=== PATIENT | male | born 1965 | race African-American/Black ===

== ENCOUNTER 2016-11-08 01:16 | Emergency (ER) | payer OTHER ==
[~2016-11-08] VITALS: Ht 182.9 cm; Wt 70.1 kg
[~2016-11-08 01:16] MED LIST: IBUP-1542 PO; IBUP800T25 PO; NAPR-260 PO; SUMA25TA3 PO
[2016-11-08 01:22] VITALS: Ht 182.9 cm; Wt 70.1 kg
[2016-11-08] MEDS ORDERED: CEFTRIAXONE 250 MG INJ IM ONE (05:30)
[2016-11-08] MEDS ORDERED: LIDOCAINE 1% (MDV) 20 ML INJ SC ONE (05:30)
[2016-11-08] MEDS ORDERED: AZITHROMYCIN 250 MG TAB PO ONE (05:30)
--- NOTE | 2016-11-08 05:36 | ERD ---
ER Documentation Chief Complaint Date/Time DATE: 11/08/16 TIME: 05:33 Chief Complaint requesting std check HPI Patient is a 51-year-old male who presents to the ED for STD check. He states that he had unprotected sex for the last 3 months. He states that he has abnormal penile discharge, white discharge. Denies fever or chills. Denies rashes. Denies urinary symptoms. Dysuria or hematuria. Denies abdominal pain , nausea, vomiting or diarrhea. Denies chest pain, cough, shortness of breath or difficulty breathing. No other complaints. ROS All systems reviewed and are negative except as per history of present illness. Medications Home Meds Active Scripts Ibuprofen* (Motrin*) 800 Mg Tab, 800 MG PO Q8 Y for PAIN AND OR ELEVATED TEMP, # 30 TAB Prov:MICHAELLE ELLIOTT CLINIC OFFICE COORDINATOR 08/25/16 Naproxen* (Naprosyn*) 500 Mg Tablet, 500 MG PO BID Y for PAIN AND/OR INFLAMMATION, #30 TAB Prov:TARUN PIMENTEL PA-C 05/31/16 Ibuprofen* (Motrin*) 600 Mg Tab, 600 MG PO Q6, #30 TAB Prov:JETT ANGUIANO PA-C 04/08/16 Sumatriptan Succinate* (Sumatriptan Succinate*) 25 Mg Tablet, 25 MG PO ONCE Y for MIGRAINE HEADACHE, #10 TAB May repeat after 2 hours if needed; MAX 200 mg/24 hours Prov:JETT ANGUIANO PA-C 04/08/16 Ibuprofen* (Motrin*) 800 Mg Tab, 800 MG PO Q6H Y for PAIN AND OR ELEVATED TEMP, #30 TAB Prov:MARLENY CHIN MD 11/30/15 Reported Medications [none] No Conflict Check 04/09/12 Allergies Allergies: Coded Allergies: hydromorphone (Verified Allergy, Severe, POSSIBLE ANAPHYLACTIC SHOCK, 04/08) PT HAD SEVERE BRADYCARDIA EPISODE PMhx/Soc History of Surgery: Yes (APPENDECTOMY.) Anesthesia Reaction: No Hx Neurological Disorder: No Hx Respiratory Disorders: No Hx Cardiac Disorders: No Hx Psychiatric Problems: No Hx Miscellaneous Medical Probl: No Hx Alcohol Use: No Hx Substance Use: No Hx Tobacco Use: No Smoking Status: Never smoker FmHx Family History: No coronary disease, No diabetes, No other Physical Exam Vitals Vital Signs Date Time Temp Pulse Resp B/P Pulse Ox O2 Delivery O2 Flow Rate FiO2 11/08/16 01:22 97.8 70 20 141/83 98 Physical Exam GENERAL: Well-developed, well-nourished male. Appears in no acute distress. HEAD: Normocephalic, atraumatic. EYES: Pupils are equally reactive bilaterally. EOMs grossly intact. No conjunctival erythema. ENT: Moist mucous membranes. No uvula deviation. No kissing tonsils. No exudates. NECK: Supple. No lymphadenopathy or thyromegaly. No meningismus. negative kernig. negative brudinski. LUNG: Clear to auscultation bilaterally. No rhonchi, wheezing, rales or coarse breath sounds. HEART: Regular rate and rhythm. No murmurs, rubs or gallops. : No rashes or lesions. No erythema. No discharge seen on exam.no torsion SKIN: Normal color. Warm and dry. No rashes or lesions. Capillary refill < 2 seconds Results 24 hrs Current Medications Medications (Trade) Dose Ordered Sig/Lavelle Route PRN Reason Start Time Stop Time Status Last Admin Dose Admin Azithromycin (Zithromax) 1,000 mg ONCE ONCE PO 11/08/16 05:30 11/08/16 05:31 DC Ceftriaxone Sodium (Rocephin) 250 mg ONCE ONCE IM 11/08/16 05:30 11/08/16 05:31 DC Lidocaine (Xylocaine 1% (Mdv) 20 ml) 20 ml ONCE ONCE SC 11/08/16 05:30 11/08/16 05:31 DC Procedures/MDM ER COURSE: I kept the patient and/or family informed of laboratory and diagnostic imaging results throughout the emergency room course. MEDICAL DECISION MAKING: This is a 51 year old male who presents with std check. Vital signs were reviewed. Patient is afebrile. Patient is not hypoxic. Patient is not toxic or ill-appearing. Patient likely has gonorrhea/chlamydia. Urine was sent for culture. Patient was treated in the ED with azithromycin and Rocephin. Tolerated medication well with no adverse reaction. Low suspicion for syphilis , abscess, cellulitis, strangulated or incarcerated hernia, herpes. Low suspicion for pyelonephritis, UTI, nephrolithiasis, appendicitis, testicular torsion, incarcerated or strangulated hernia. DISCHARGE: At this time, patient is stable for discharge and outpatient management with no new complaints during the ER course. . Patient will be discharged home with instructions to recheck for new or worsening symptoms such as fever, nausea, weakness, LOC and to follow up with primary care in the next 1-2 days. Patient was advised to return to the ER for any new or worsening symptoms. Plan was discussed and patient and/or family understands and agrees. Home instructions were given. Departure Diagnosis: Primary Impression: Screen for STD (sexually transmitted disease) Condition: Stable Patient Instructions: Gonorrhea (Urine) Additional Instructions: Call your primary care doctor TOMORROW for an appointment during the next 1-2 days.See the doctor sooner or return here if your condition worsens before your appointment time. DILCIA CHOE PA-C Nov 08, 2016 05:36
[2016-11-08 06:02] VITALS: BP 132/78; PULSE 80; RESP 16
== END 2016-11-08 06:03 | disposition home or self-care (01) ==
LOC: FTE 01:16
DX: Z11.3 Encounter for screening for infections with a predominantly sexual mode of transmission (principal)
CPT/HCPCS: 87591; 96372; J0696; Z7502; Z7610

== ENCOUNTER 2016-11-09 01:21 | Emergency (ER) | payer OTHER ==
[~2016-11-09] VITALS: Ht 177.8 cm; Wt 70.0 kg
[2016-11-09 01:35] VITALS: Ht 177.8 cm; Wt 70.0 kg
--- NOTE | 2016-11-09 03:44 | ERD ---
ER Documentation Chief Complaint Date/Time DATE: 11/09/16 TIME: 03:42 Chief Complaint wants to follow up lab results done yesterday for std tests HPI This is a 51-year-old male presents to the ER for STD results. Patient is completely asymptomatic. He denies any fevers or chills. He denies any urinary frequency or dysuria. He denies any penile discharge. ROS 12 point review of systems was done, all negative except per HPI. Medications Home Meds Active Scripts Ibuprofen* (Motrin*) 800 Mg Tab, 800 MG PO Q8 Y for PAIN AND OR ELEVATED TEMP, # 30 TAB Prov:MICHAELLE ELLIOTT NP 08/25/16 Naproxen* (Naprosyn*) 500 Mg Tablet, 500 MG PO BID Y for PAIN AND/OR INFLAMMATION, #30 TAB Prov:TARUN PIMENTEL PA-C 05/31/16 Ibuprofen* (Motrin*) 600 Mg Tab, 600 MG PO Q6, #30 TAB Prov:JETT ANGUIANO PA-C 04/08/16 Sumatriptan Succinate* (Sumatriptan Succinate*) 25 Mg Tablet, 25 MG PO ONCE Y for MIGRAINE HEADACHE, #10 TAB May repeat after 2 hours if needed; MAX 200 mg/24 hours Prov:JETT ANGUIANO PA-C 04/08/16 Ibuprofen* (Motrin*) 800 Mg Tab, 800 MG PO Q6H Y for PAIN AND OR ELEVATED TEMP, #30 TAB Prov:MARLENY CHIN MD 11/30/15 Reported Medications [none] No Conflict Check 04/09/12 Allergies Allergies: Coded Allergies: hydromorphone (Verified Allergy, Severe, POSSIBLE ANAPHYLACTIC SHOCK, 04/08) PT HAD SEVERE BRADYCARDIA EPISODE PMhx/Soc History of Surgery: Yes (APPENDECTOMY.) Anesthesia Reaction: No Hx Neurological Disorder: No Hx Respiratory Disorders: No Hx Cardiac Disorders: No Hx Psychiatric Problems: No Hx Miscellaneous Medical Probl: No Hx Alcohol Use: No Hx Substance Use: No Hx Tobacco Use: No Physical Exam Vitals Vital Signs Date Time Temp Pulse Resp B/P Pulse Ox O2 Delivery O2 Flow Rate FiO2 11/09/16 01:35 97.2 63 20 131/84 99 Physical Exam GENERAL: The patient is well developed and appropriate for usual state of health , in no apparent distress. HEENT: Atraumatic CHEST: Clear to auscultation bilaterally. There are no rales, wheezes or rhonchi. HEART: Regular rate and rhythm. No murmurs, clicks, rubs or gallops. NEURO: Alert and oriented. SKIN: There is no apparent rash or petechia. The skin is warm and dry. Procedures/MDM This is a 51-year-old male that presents to the ER for STD results. At this time results are not back yet. Also patient was treated yesterday for any potential STD. Patient is to follow-up with his primary care doctor within 1-2 days or return to ER sooner if symptoms worsen. Medical decision making initially with the patient understands and agrees with plan. Departure Diagnosis: Primary Impression: Follow-up examination for injury Condition: Stable ROSE STEPHEN Nov 09, 2016 03:44
== END 2016-11-09 03:06 | disposition left against medical advice (07) ==
LOC: FTE 01:21
DX: Z04.8 Encounter for examination and observation for other specified reasons (principal)
CPT/HCPCS: 99282

== ENCOUNTER 2016-11-10 03:04 | Emergency (ER) | payer OTHER ==
[~2016-11-10] VITALS: Ht 172.7 cm; Wt 72.0 kg
[2016-11-10 03:16] VITALS: Ht 172.7 cm; Wt 72.0 kg
--- NOTE | 2016-11-10 05:01 | ERA ---
ER Documentation Chief Complaint Date/Time DATE: 11/10/16 TIME: 05:00 Chief Complaint here to follow up on STD test he had here a few days ago HPI The patient is a 51-year-old male, presenting to the ER for STD results that he had 2 days ago. He had unprotected and was treated with Rocephin IM and Zithromax p.o. 2 days ago. He came yesterday and today for the STD result. He denies any dysuria, urethral discharge, new sexual activity. ROS All systems reviewed and are negative except as per history of present illness. Medications Home Meds Active Scripts Ibuprofen* (Motrin*) 800 Mg Tab, 800 MG PO Q8 Y for PAIN AND OR ELEVATED TEMP, # 30 TAB Prov:MICHAELLE ELLOITT NP 08/25/16 Naproxen* (Naprosyn*) 500 Mg Tablet, 500 MG PO BID Y for PAIN AND/OR INFLAMMATION, #30 TAB Prov:TARUN PIMENTEL PA-C 05/31/16 Ibuprofen* (Motrin*) 600 Mg Tab, 600 MG PO Q6, #30 TAB Prov:JETT ANGUIANO PA-C 04/08/16 Sumatriptan Succinate* (Sumatriptan Succinate*) 25 Mg Tablet, 25 MG PO ONCE Y for MIGRAINE HEADACHE, #10 TAB May repeat after 2 hours if needed; MAX 200 mg/24 hours Prov:JETT ANGUIANO PA-C 04/08/16 Ibuprofen* (Motrin*) 800 Mg Tab, 800 MG PO Q6H Y for PAIN AND OR ELEVATED TEMP, #30 TAB Prov:MARLENY CHIN MD 11/30/15 Reported Medications [none] No Conflict Check 04/09/12 Allergies Allergies: Coded Allergies: hydromorphone (Verified Allergy, Severe, POSSIBLE ANAPHYLACTIC SHOCK, 04/08) PT HAD SEVERE BRADYCARDIA EPISODE PMhx/Soc History of Surgery: Yes (APPENDECTOMY.) Anesthesia Reaction: No Hx Neurological Disorder: No Hx Respiratory Disorders: No Hx Cardiac Disorders: No Hx Psychiatric Problems: No Hx Miscellaneous Medical Probl: Yes (anxiety, sleep apnea) Hx Alcohol Use: No Hx Substance Use: No Hx Tobacco Use: No Smoking Status: Never smoker Physical Exam Vitals Vital Signs Date Time Temp Pulse Resp B/P Pulse Ox O2 Delivery O2 Flow Rate FiO2 11/10/16 03:16 97.6 62 16 117/72 97 Physical Exam Const: No acute distress. Head: Atraumatic. Eyes: Normal Conjunctiva. ENT: Normal External Ears, Nose and Mouth. Neck: Full range of motion. No meningismus. Resp: Clear to auscultation bilaterally. Cardio: Regular rate and rhythm, no murmurs. Abd: Soft, non distended, normal bowel sounds, non tender. Skin: No petechiae or rashes. Back: No midline or flank tenderness. Ext: No cyanosis, or edema. Neur: Awake and alert. No focal deficit Psych: Normal Mood and Affect. Procedures/MDM MEDICAL MAKING DECISION: The patient is a 51-year-old male, was treated for STD exposure. I advised him to follow-up with his physician or at the clinic for other the type of STD evaluation Departure Diagnosis: Primary Impression: STD exposure Condition: Good Comments He was advised to follow-up at medical record in 1 week for the result STEPHANY ZAIDI MD Nov 10, 2016 05:01
== END 2016-11-10 05:12 | disposition home or self-care (01) ==
LOC: E/R 03:04
DX: Z20.2 Contact with and (suspected) exposure to infections with a predominantly sexual mode of transmission (principal)
CPT/HCPCS: 99282

== ENCOUNTER 2016-12-06 15:08 | Emergency (ER) | payer OTHER ==
[~2016-12-06] VITALS: Wt 72.9 kg
[2016-12-06] MEDS ORDERED: KETOROLAC 15 MG INJ IM STA (16:41)
[2016-12-06] MEDS ORDERED: DIAZEPAM 5 MG TAB PO ONE (17:00)
--- NOTE | 2016-12-06 17:01 | ERD ---
ER Documentation Chief Complaint Date/Time DATE: 12/06/16 TIME: 16:41 Chief Complaint non traumatic headache with light sensitivity. n/v. no recent trauma HPI Splint Assessment: Neurovascularly intact post splint placement with good fit. 51-year-old male patient presents to emergency department today with complaint of right-sided headache, headache dizziness described as throbbing and constant , located behind right eye, radiates to right neck and trapezius. Patient reports photosensitivity and nausea denies any aura, headache is 10 on 10 on pain scale. Patient states migraine history, that he has had for headaches in the last 2 weeks treating with [id number] ibuprofen taking 800 mg every 8 hours with little to no relief in symptoms. Patient has been treated and seen by neurologist, has had a CT in the past. Patient reports his neck pain is just general stiffness from sleep, denies any injury denies fever, chills, weight loss, change in speech or behavior. ROS All systems reviewed and are negative except as per history of present illness. Medications Home Meds Active Scripts Diazepam* (Valium*) 5 Mg Tablet, 5 MG PO Q8, #10 TAB Prov:HETAL,HOLLY 12/06/16 Ibuprofen* (Motrin*) 800 Mg Tab, 800 MG PO Q6, #30 TAB Prov:HETAL,HOLLY 12/06/16 Ibuprofen* (Motrin*) 800 Mg Tab, 800 MG PO Q8 Y for PAIN AND OR ELEVATED TEMP, # 30 TAB Prov:MICHAELLE ELLIOTT NP 08/25/16 Naproxen* (Naprosyn*) 500 Mg Tablet, 500 MG PO BID Y for PAIN AND/OR INFLAMMATION, #30 TAB Prov:TARUN PIMENTEL PA-C 05/31/16 Ibuprofen* (Motrin*) 600 Mg Tab, 600 MG PO Q6, #30 TAB Prov:JETT ANGUIANO PA-C 04/08/16 Sumatriptan Succinate* (Sumatriptan Succinate*) 25 Mg Tablet, 25 MG PO ONCE Y for MIGRAINE HEADACHE, #10 TAB May repeat after 2 hours if needed; MAX 200 mg/24 hours Prov:JETT ANGUIANO PA-C 04/08/16 Ibuprofen* (Motrin*) 800 Mg Tab, 800 MG PO Q6H Y for PAIN AND OR ELEVATED TEMP, #30 TAB Prov:MARLENY CHIN MD 11/30/15 Reported Medications [none] No Conflict Check 04/09/12 Allergies Allergies: Coded Allergies: hydromorphone (Verified Allergy, Severe, POSSIBLE ANAPHYLACTIC SHOCK, 04/08) PT HAD SEVERE BRADYCARDIA EPISODE PMhx/Soc History of Surgery: Yes (APPENDECTOMY.) Anesthesia Reaction: No Hx Neurological Disorder: No Hx Respiratory Disorders: No Hx Cardiac Disorders: No Hx Psychiatric Problems: No Hx Miscellaneous Medical Probl: Yes (anxiety, sleep apnea) Hx Alcohol Use: No Hx Substance Use: No Hx Tobacco Use: No Smoking Status: Never smoker Physical Exam Vitals Vital Signs Date Time Temp Pulse Resp B/P Pulse Ox O2 Delivery O2 Flow Rate FiO2 12/06/16 15:30 98.5 59 20 144/81 99 Vitals stable, nursing notes reviewed Physical Exam Const: No acute distress. Head: Atraumatic, no contusion, lesion, or hematoma Eyes: Normal Conjunctiva PERRLA, EOMI ENT: Tympanic membranes obstructed with cerumen, nasal mucosa moist without rhinorrhea, pharynx pink Neck: Full range of motion. Neck is supple, full range of motion with rotation, lateral bending and flexion.~ No meningismus. No cervical point tenderness, palpable paraspinal tenderness on right insertion at base of skull to trapezius. Resp: Cardio: Abd: Soft, non tender, non distended. Normal bowel sounds Skin: Back: Ext: Neur: Alert and oriented Face: EOMI, face and pharynx with normal sensation and function Motor: Normal strength throughout Sensation: Normal sensation throughout Speech: Normal Cerebel: Normal coordination Normal gait Normal finger to nose DTR: 2+ and symmetric upper/lower extremities Psych: Normal Mood and Affect Results 24 hrs Current Medications Medications (Trade) Dose Ordered Sig/Lavelle Route PRN Reason Start Time Stop Time Status Last Admin Dose Admin Ketorolac Tromethamine (Toradol) 15 mg ONCE STAT IM 12/06/16 16:41 12/06/16 16:44 DC 12/06/16 16:56 Diazepam (Valium) 5 mg ONCE ONCE PO 12/06/16 17:00 12/06/16 17:01 DC 12/06/16 16:55 Procedures/MDM This pleasant 51-year-old male presents to emergency department today for treatment of headache. Patient has had headaches for the last 4 days waxing and waning with minimal treatment with [id number] ibuprofen 800 mg p.o. Patient has migraine history, treatment with specialist, denies ever using preventative treatment with triptan's. Headache versus migraine versus tension type headache. Patient's vitals are stable, hypertension is not suspected as headache source. Patient does not report this is the worst headache of his life but states pain is 10 out of 10, patient does not know the exact time headache started, subarachnoid or intracranial bleed is not likely. Patient treated with Toradol and Valium with decrease in pain sensation to 5/10 on pain scale. Patient candidate for outpatient follow-up and treatment will be discharged home with Motrin and Valium. Follow-up with primary care physician for preventative treatment. Neck ache prevention discussed. I feel the patient is stable for discharge at this time. I have discussed results, examination findings, the treatment plan with the patient and family present prior to discharge. Indications for emergent reevaluation, side effects of medication were also discussed. All questions were answered. Patient verbalizes understanding and agrees with plan of care. Departure Diagnosis: Primary Impression: Headache Headache type: unspecified Headache chronicity pattern: unspecified pattern Intractability: not intractable Qualified Code: R51 - Nonintractable headache, unspecified chronicity pattern, unspecified headache type Condition: Good Patient Instructions: Self-Care for Headaches Referrals: [facility] Additional Instructions: Thank you for for coming to [facility] for your care today. Please ask your nurse or provider if you have questions about your care today and do not leave until all your questions have been answered. Please use any medications given as directed and follow-up with your doctor (or the doctor you were referred to) in the next 2-3 days. If you do not have a primary care doctor you may follow [place] [facility] [place] You may also use motrin and tylenol as needed for fever and/or pain unless instructed otherwise by your provider or nurse. Indications for more urgent follow-up have been discussed, but you may return to the Emergency Department at ANY time for any worrisome or worsening symptoms. If you have abdominal pain, please know that no test or exam you received is perfect and you should follow up within 8 hours for continued pain. If you had any imaging studies today, such as an X-Ray or CT Scan, these studies will be reviewed later by a radiologist. You will be called if there are important findings that were not identified today, so make sure the contact information you provided at registration is correct. If you received any narcotic pain control medicine today, such as Vicodin, Morphine or Dilaudid, your coordination and judgment may be affected for a number of hours. Please do not drive or operate heavy machinery, and you may want someone to assist you at home. If you were given a prescription for narcotic medication, be aware that it is very addictive- use sparingly and only if necessary. HOLLY FNOG Dec 06, 2016 17:01
[2016-12-06] MEDS ORDERED: IBUP800T25 PO (18:11)
[2016-12-06] MEDS ORDERED: DIAZ-90 PO (18:12)
== END 2016-12-06 18:40 | disposition home or self-care (01) ==
LOC: FTE 15:08
DX: R51 Headache (principal)
CPT/HCPCS: J1885; Z7610; 96372

== ENCOUNTER 2017-01-02 11:25 | Emergency (ER) | payer OTHER ==
[~2017-01-02] VITALS: Ht 172.7 cm; Wt 68.0 kg
[~2017-01-02 11:25] MED LIST changes: +DIAZ-90 PO
[2017-01-02 11:27] VITALS: Ht 172.7 cm; Wt 68.0 kg
[2017-01-02] MEDS ORDERED: FIORICET PO (12:24)
[2017-01-02] MEDS ORDERED: OLOP5DRO12 BOTH EYES (12:24)
--- NOTE | 2017-01-02 14:53 | ERA ---
ER Documentation Chief Complaint Date/Time DATE: 01/02/17 Chief Complaint FLORA EYE BURNING PAIN AND ITCHING,MORE ON OUTER CANTHUS AREA. HPI The patient is a 51-year-old male, presenting with bilateral eyes irritation for 5 days, denies eye discharge, visual change. He denies fever, headache, neck pain, chest pain, dyspnea, abdominal pain, vomiting, dysuria, diarrhea. He does not smoke nor drink. He also requests medication for migraine Past medical history: Migraine Past surgical history: Appendectomy ROS All systems reviewed and are negative except as per history of present illness. Medications Home Meds Active Scripts Acetamin/Butalbital/Caffeine* (Fioricet*) [id number] Tab, 1 TAB PO Q6H Y for PAIN, #15 TAB Prov:STEPHANY ZAIDI MD 01/02/17 Olopatadine* (Patanol* Ophth) 0.1% - 5 Ml Drops, 1 DROP BOTH EYES BID, #1 EA Prov:STEPHANY ZAIDI MD 01/02/17 Diazepam* (Valium*) 5 Mg Tablet, 5 MG PO Q8, #10 TAB Prov:HETAL,HOLLY 12/06/16 Ibuprofen* (Motrin*) 800 Mg Tab, 800 MG PO Q6, #30 TAB Prov:HETAL,HOLLY 12/06/16 Ibuprofen* (Motrin*) 800 Mg Tab, 800 MG PO Q8 Y for PAIN AND OR ELEVATED TEMP, # 30 TAB Prov:MICHAELLE ELLIOTT NP 08/25/16 Naproxen* (Naprosyn*) 500 Mg Tablet, 500 MG PO BID Y for PAIN AND/OR INFLAMMATION, #30 TAB Prov:TARUN PIMENTEL PA-C 05/31/16 Ibuprofen* (Motrin*) 600 Mg Tab, 600 MG PO Q6, #30 TAB Prov:JETT ANGUIANO PA-C 04/08/16 Sumatriptan Succinate* (Sumatriptan Succinate*) 25 Mg Tablet, 25 MG PO ONCE Y for MIGRAINE HEADACHE, #10 TAB May repeat after 2 hours if needed; MAX 200 mg/24 hours Prov:JETT ANGUIANO PA-C 04/08/16 Ibuprofen* (Motrin*) 800 Mg Tab, 800 MG PO Q6H Y for PAIN AND OR ELEVATED TEMP, #30 TAB Prov:MARLENY CHIN MD 11/30/15 Reported Medications [none] No Conflict Check 04/09/12 Allergies Allergies: Coded Allergies: hydromorphone (Verified Allergy, Severe, POSSIBLE ANAPHYLACTIC SHOCK, 01/02) PT HAD SEVERE BRADYCARDIA EPISODE PMhx/Soc History of Surgery: Yes (APPENDECTOMY.) Anesthesia Reaction: No Hx Neurological Disorder: No Hx Respiratory Disorders: No Hx Cardiac Disorders: No Hx Psychiatric Problems: No Hx Miscellaneous Medical Probl: Yes (anxiety, sleep apnea) Hx Alcohol Use: No Hx Substance Use: No Hx Tobacco Use: No Smoking Status: Never smoker Physical Exam Vitals Vital Signs Date Time Temp Pulse Resp B/P Pulse Ox O2 Delivery O2 Flow Rate FiO2 01/02/17 11:27 97.1 78 18 135/68 98 Physical Exam Const: No acute distress. Head: Atraumatic. Eyes: Normal Conjunctiva. No eye discharge ENT: Normal External Ears, Nose and Mouth. Neck: Full range of motion. No meningismus. Resp: Clear to auscultation bilaterally. Cardio: Regular rate and rhythm, no murmurs. Abd: Soft, non distended, normal bowel sounds, non tender. Skin: No petechiae or rashes. Back: No midline or flank tenderness. Ext: No cyanosis, or edema. Neur: Awake and alert. No focal deficit Psych: Normal Mood and Affect. Procedures/MDM MEDICAL MAKING DECISION:-year-old male, presenting with acute allergic conjunctivitis. The differential diagnoses considered include but are not limited to bacterial conjunctivitis, corneal abrasion, foreign bodies Departure Diagnosis: Primary Impression: Allergic conjunctivitis Additional Impression: Migraine Condition: Good Patient Instructions: Conjunctivitis, Allergic (Child) Additional Instructions: Call your primary care doctor TOMORROW for an appointment during the next 2-3 days.See the doctor sooner or return here if your condition worsens before your appointment time. He was discharged with Patanol and Fioricet The patient's blood pressure was elevated (>120/80) but appears stable without evidence of hypertension emergency or urgency. The patient was counseled about the risks of hypertension and urged to pursue outpatient monitoring and therapy within a week with their primary care physician. STEPHANY ZAIDI MD Jan 02, 2017 14:53
== END 2017-01-02 12:36 | disposition home or self-care (01) ==
LOC: FTE 11:25
DX: H10.89 Other conjunctivitis (principal); G43.909 Migraine, unspecified, not intractable, without status migrainosus
CPT/HCPCS: 99283

== ENCOUNTER 2017-01-08 20:54 | Emergency (ER) | payer OTHER ==
[~2017-01-08] VITALS: Ht 182.9 cm; Wt 69.5 kg
[~2017-01-08 20:54] MED LIST changes: +FIORICET PO; +OLOP5DRO12 BOTH EYES
[2017-01-08 20:58] VITALS: Ht 182.9 cm; Wt 69.5 kg
--- NOTE | 2017-01-08 22:54 | ERD ---
ER Documentation Chief Complaint Date/Time DATE: 01/08/17 TIME: 22:51 Chief Complaint left ear pain for 5 days HPI 51-year-old male presents to emergency department for complaint of left ear pain for 5 days, throbbing pain 4/10 scale, accompanied with muffled hearing. Patient has history of cerumen impaction before. Patient denies any ear discharge. Patient denies any fever or chills. ROS All systems reviewed and are negative except as per history of present illness. Medications Home Meds Active Scripts Acetamin/Butalbital/Caffeine* (Fioricet*) [id number] Tab, 1 TAB PO Q6H Y for PAIN, #15 TAB Prov:STEPHANY ZAIDI MD 01/02/17 Olopatadine* (Patanol* Ophth) 0.1% - 5 Ml Drops, 1 DROP BOTH EYES BID, #1 EA Prov:STEPHANY ZAIDI MD 01/02/17 Diazepam* (Valium*) 5 Mg Tablet, 5 MG PO Q8, #10 TAB Prov:HETAL,HOLLY 12/06/16 Ibuprofen* (Motrin*) 800 Mg Tab, 800 MG PO Q6, #30 TAB Prov:HETAL,HOLLY 12/06/16 Ibuprofen* (Motrin*) 800 Mg Tab, 800 MG PO Q8 Y for PAIN AND OR ELEVATED TEMP, # 30 TAB Prov:MICHAELLE ELLIOTT NP 08/25/16 Naproxen* (Naprosyn*) 500 Mg Tablet, 500 MG PO BID Y for PAIN AND/OR INFLAMMATION, #30 TAB Prov:TARUN PIMENTEL PA-C 05/31/16 Ibuprofen* (Motrin*) 600 Mg Tab, 600 MG PO Q6, #30 TAB Prov:JETT ANGUIANO PA-C 04/08/16 Sumatriptan Succinate* (Sumatriptan Succinate*) 25 Mg Tablet, 25 MG PO ONCE Y for MIGRAINE HEADACHE, #10 TAB May repeat after 2 hours if needed; MAX 200 mg/24 hours Prov:JETT ANGUIANO PA-C 04/08/16 Ibuprofen* (Motrin*) 800 Mg Tab, 800 MG PO Q6H Y for PAIN AND OR ELEVATED TEMP, #30 TAB Prov:MARLENY CHIN MD 11/30/15 Reported Medications [none] No Conflict Check 04/09/12 Allergies Allergies: Coded Allergies: hydromorphone (Verified Allergy, Severe, POSSIBLE ANAPHYLACTIC SHOCK, 01/02) PT HAD SEVERE BRADYCARDIA EPISODE PMhx/Soc History of Surgery: Yes (APPENDECTOMY.) Anesthesia Reaction: No Hx Neurological Disorder: No Hx Respiratory Disorders: No Hx Cardiac Disorders: No Hx Psychiatric Problems: No Hx Miscellaneous Medical Probl: Yes (anxiety, sleep apnea) Hx Alcohol Use: No Hx Substance Use: No Hx Tobacco Use: No Smoking Status: Never smoker FmHx Family History: No coronary disease, No diabetes, No other Physical Exam Vitals Vital Signs Date Time Temp Pulse Resp B/P Pulse Ox O2 Delivery O2 Flow Rate FiO2 01/08/17 20:58 97.8 88 20 132/78 100 Physical Exam GENERAL: The patient is well developed and appropriate for usual state of health, in no apparent distress. HEENT: Atraumatic. Ears: Left ear canal noted to be from an impacted. Normal tympanic membrane, no erythema or bulging. No ear canal swelling. No ear discharge. Nose: normal nasal turbinates, no erythema or swelling. Normal nasal discharge. Throat: oropharynx clear. No tonsillar swelling or tonsillar exudates. No lymphadenopathy. CHEST: Clear to auscultation bilaterally. There are no rales, wheezes or rhonchi. HEART: Regular rate and rhythm. No murmurs, clicks, rubs or gallops. No S3 or S4. ABDOMEN: Soft, nontender and nondistended. Good bowel sounds. No rebound or guarding. No gross peritonitis. No gross organomegaly or masses. No Soliz sign or McBurney point tenderness. BACK: No midline or flank tenderness. EXTREMITIES: Equal pulses bilaterally. There is no peripheral clubbing, cyanosis or edema. No focal swelling or erythema. Full range of motion. Grossly neurovascularly intact. NEURO: Alert and oriented. Cranial nerves 2-12 intact. Motor strength in all 4 extremities with 5/5 strength. Sensation grossly intact. Normal speech and gait. SKIN: There is no apparent rash or petechia. The skin is warm and dry. HEMATOLOGIC AND LYMPHATIC: There is no evidence of excessive bruising or lymphedema. No gross cervical, axillary, or inguinal lymphadenopathy. Results 24 hrs Procedure note: After patient's verbal consent, ear lavage with a combination of normal saline and hydrogen peroxide was done on the left ear, afterwards, cerumen was removed, TM was visualized no infection noted, and nonbulging, normal. Patient verbalizing much better afterwards, denies any pain afterwards, no erythema or hearing afterwards. Procedures/MDM Medical decision making: Patient's symptoms likely consistent with cerumen impaction. No foreign body, no TM perforation, no otitis media otitis externa mastoiditis. Patient was given for Corticosporin otic drops to prevent infection of affected ear, patient is advised to follow with primary care doctor in 2-3 days, avoid using Q-tips to clean the area. Patient is advised to return to emergency department for any worsening symptoms. Departure Diagnosis: Primary Impression: Cerumen impaction Laterality: left Qualified Code: H61.22 - Impacted cerumen of left ear Condition: Stable Patient Instructions: Cerumen Impaction, Home Care BRIAN SANCHEZ NP January 08, 2017 22:53
[2017-01-09] MEDS ORDERED: NPH10OT LEFT EAR (00:20)
[2017-01-09 00:39] VITALS: BP 139/94; PULSE 63; RESP 17; TEMP 98.2
== END 2017-01-09 00:39 | disposition home or self-care (01) ==
LOC: FTE 20:54
DX: H61.22 Impacted cerumen, left ear (principal)
CPT/HCPCS: 69209; Z7502

== ENCOUNTER 2018-06-19 21:49 | Emergency (ER) | END 2018-06-20 02:31 | disposition home or self-care (01) ==

== ENCOUNTER 2018-11-03 11:47 | Emergency (ER) | payer OTHER ==
[~2018-11-03] VITALS: Wt 68.4 kg
[~2018-11-03 11:47] MED LIST changes: -DIAZ-90 PO; +DIAZ5TAB PO; -IBUP800T25 PO; +IBUP800T48 PO; -NAPR-260 PO; +NAPR-985 PO; +NPH10OT LEFT EAR
[2018-11-03] MEDS ORDERED: METOCLOPRAMIDE 10 MG INJ IV STA (14:48)
[2018-11-03] MEDS ORDERED: KETOROLAC 30 MG INJ IV STA (14:48)
[2018-11-03] MEDS ORDERED: DIPHENHYDRAMINE 50 MG INJ IV STA (14:48)
--- NOTE | 2018-11-03 14:56 | ERD ---
ER Documentation Chief Complaint Chief Complaint HEADACHE, NAUSEA, CONSTIPATION CHRONIC HPI 53-year-old male with history of migraines he had a headache since yesterday. Describes the pain as 9 out of 10. States that is not the worst headache of his life but he has been taking Tylenol has not been helping. He does state that the quality of this headache is somewhat different than his usual migraines and he would like imaging done. Brain CT 2 years ago for similar complaints and CT came back with mild abnormalities. States the headache does get worse with light and noise. Denies fevers, nausea, vomiting, diarrhea, focal neurological deficits, numbness, tingling, dizziness. In addition patient states that he has been having lower abdominal pain intermittently for the last several months. He states that the pain radiates down his legs but denies any fever, diarrhea, vomiting, hematochezia, dysuria, hematuria. He does state that he was diagnosed with diverticulitis in the past he has been constipated for the last 4 days. Denies allergies. Denies current medications. ROS All systems reviewed and are negative except as per history of present illness. Medications Home Meds Active Scripts Sumatriptan Succinate* (Sumatriptan Succinate*) 25 Mg Tablet, 25 MG PO ONCE PRN for MIGRAINE HEADACHE, #10 TAB May repeat after 2 hours if needed; MAX 200 mg/24 hours Prov:DERIAN HERNANDEZ 11/03/18 Ibuprofen* (Motrin*) 600 Mg Tab, 600 MG PO Q6 for headache, #30 TAB Prov:DERIAN HERNANDEZ 11/03/18 Docusate Sodium* (Colace*) 100 Mg Capsule, 100 MG PO TID for constipation for 7 Days, #21 CAP Prov:DERIAN HERNANDEZ 11/03/18 Ibuprofen* (Motrin*) 600 Mg Tab, 600 MG PO Q6, #30 TAB Prov:RADHA LEZAMA PA-C 06/20/18 Neomycin/Polymyxin/Hydrocort* (Cortisporin* Otic) 10 Ml Susp, 4 DROP LEFT EAR QID for 7 Days, EA Prov:BRIAN SANCHEZ NP 01/09/17 Acetamin/Butalbital/Caffeine* (Fioricet*) [id number] Tab, 1 TAB PO Q6H PRN for PAIN, #15 TAB Prov:STEPHANY ZAIDI MD 01/02/17 Olopatadine* (Patanol* Ophth) 0.1% - 5 Ml Drops, 1 DROP BOTH EYES BID, #1 EA Prov:STEPHANY ZAIDI MD 01/02/17 Diazepam* (Valium*) 5 Mg Tablet, 5 MG PO Q8, #10 TAB Prov:HETAL,HOLLY 12/06/16 Ibuprofen* (Motrin*) 800 Mg Tab, 800 MG PO Q6, #30 TAB Prov:HETAL,HOLLY 12/06/16 Ibuprofen* (Motrin*) 800 Mg Tab, 800 MG PO Q8 PRN for PAIN AND OR ELEVATED TEMP, #30 TAB Prov:MICHAELLE ELLIOTT NP 08/25/16 Naproxen* (Naprosyn*) 500 Mg Tablet, 500 MG PO BID PRN for PAIN AND/OR INFLAMMATION, #30 TAB Prov:TARUN PIMENTEL PA-C 05/31/16 Ibuprofen* (Motrin*) 600 Mg Tab, 600 MG PO Q6, #30 TAB Prov:JETT ANGUIANO-C 04/08/16 Ibuprofen* (Motrin*) 800 Mg Tab, 800 MG PO Q6H PRN for PAIN AND OR ELEVATED TEMP, #30 TAB Prov:MARLENY CHIN MD 11/30/15 Reported Medications [none] No Conflict Check 04/09/12 Allergies Allergies: Coded Allergies: hydromorphone (Verified Allergy, Severe, POSSIBLE ANAPHYLACTIC SHOCK, 01/02/17) PT HAD SEVERE BRADYCARDIA EPISODE PMhx/Soc History of Surgery: Yes (APPENDECTOMY.) Anesthesia Reaction: No Hx Neurological Disorder: No Hx Respiratory Disorders: No Hx Cardiac Disorders: No Hx Psychiatric Problems: No Hx Miscellaneous Medical Probl: Yes (anxiety, sleep apnea) Hx Alcohol Use: No Hx Substance Use: No Hx Tobacco Use: No FmHx Family History: No diabetes, No coronary disease, No other Physical Exam Vitals Vital Signs Date Temp Pulse Resp B/P (MAP) Pulse Ox O2 O2 Flow FiO2 Time Delivery Rate 11/03/18 97.9 62 18 123/96 Room Air 17:13 (105) 11/03/18 98.2 65 19 131/79 98 12:40 (96) Physical Exam General: Well developed, well nourished. No acute distress. Head: Atraumatic. No sinus tenderness to palpation. Eyes: PERRLA. EOM's intact. No icterus, lesions, injection, or edema. Heart: RR w/o murmur, rubs, or gallops. Lungs: Clear to auscultation bilaterally w/o wheezes, crackles, rhonchi. Symmetric rise and fall. Equal breath sounds. Abdomen: Mild tenderness to lower left quadrant upon palpation, otherwise soft, nontender, with no rigidity or guarding noted. No masses, lesions, or ecc hymoses. Normoactive bowel sounds. No McBurney's point tenderness. Patient ambulatory. No tenderness to palpation in splenic area or splenomegaly. No CVA tenderness. Back: Full ROM. No midline tenderness. No step offs, bony deformity, masses, erythema, or edema noted. Extremities: 5/5 strength and full ROM of upper and lower extremeties bilaterally. Distal sensation and pulses intact. Normal cap refill. Skin: No rash or other lesions noted. Color normal for ethnicity. Neuro: CN II through XII intact. Rapid alternating movement intact. No cerebellar or gait deficits. Strength and sensation intact. Alert and oriented x3. Psych: Normal mood and affect. Result Diagram: 11/03/18 1459 11/03/18 1459 Results 24 hrs Laboratory Tests Test 11/03/18 14:59 White Blood Count 4.0 10^3/ul Red Blood Count 5.07 10^6/ul Hemoglobin 14.2 g/dl Hematocrit 41.7 % Mean Corpuscular Volume 82.2 fl Mean Corpuscular Hemoglobin 28.0 pg Mean Corpuscular Hemoglobin Concent 34.1 g/dl Red Cell Distribution Width 12.3 % Platelet Count 198 10^3/UL Mean Platelet Volume 9.8 fl Immature Granulocytes % 0.200 % Neutrophils % 52.4 % Lymphocytes % 37.7 % Monocytes % 7.5 % Eosinophils % 1.7 % Basophils % 0.5 % Nucleated Red Blood Cells % 0.0 /100WBC Immature Granulocytes # 0.010 10^3/ul Neutrophils # 2.1 10^3/ul Lymphocytes # 1.5 10^3/ul Monocytes # 0.3 10^3/ul Eosinophils # 0.1 10^3/ul Basophils # 0.0 10^3/ul Nucleated Red Blood Cells # 0.0 10^3/ul Urine Color YELLOW Urine Clarity CLEAR Urine pH 5.0 Urine Specific [place] 1.011 Urine Ketones NEGATIVE mg/dL Urine Nitrite NEGATIVE mg/dL Urine Bilirubin NEGATIVE mg/dL Urine Urobilinogen NEGATIVE mg/dL Urine Leukocyte Esterase NEGATIVE Yahir/ul Urine Hemoglobin NEGATIVE mg/dL Urine Glucose NEGATIVE mg/dL Urine Total Protein NEGATIVE mg/dl Sodium Level 142 mmol/L Potassium Level 3.9 mmol/L Chloride Level 103 mmol/L Carbon Dioxide Level 29 mmol/L Anion Gap 10 Blood Urea Nitrogen 11 mg/dl Creatinine 0.80 mg/dl Est Glomerular Filtrat Rate mL/min > 60 mL/min Glucose Level 90 mg/dl Calcium Level 9.8 mg/dl Total Bilirubin 2.3 mg/dl Direct Bilirubin 0.00 mg/dl Indirect Bilirubin 2.3 mg/dl Aspartate Amino Transf (AST/SGOT) 16 IU/L Alanine Aminotransferase (ALT/SGPT) 17 IU/L Alkaline Phosphatase 58 IU/L Total Protein 8.0 g/dl Albumin 4.5 g/dl Globulin 3.50 g/dl Albumin/Globulin Ratio 1.28 Lipase 39 U/L Current Medications Medications Dose Sig/Lavelle Start Time Status Last (Trade) Ordered Route PRN Stop Time Admin Dose Reason Admin 10 mg ONCE STAT 11/03/18 DC 11/03/18 Metoclopramid IV 14:48 15:09 e HCl 11/03/18 14:50 (Reglan) Ketorolac 30 mg ONCE STAT 11/03/18 DC 11/03/18 Tromethamine IV 14:48 15:08 (Toradol) 11/03/18 14:50 25 mg ONCE STAT 11/03/18 DC 11/03/18 Diphenhydrami IV 14:48 15:09 ne HCl 11/03/18 14:50 (Benadryl) Procedures/MDM DIAGNOSTIC IMAGING REPORT Patient: LEANNE RINCON : 1965 Age: 53 Sex: M MR #: [id number] DOS: 11/03/18 1439 Ordering MD: DERIAN HERNANDEZ Location: [facility] Room/Bed: PROCEDURE: CT brain without contrast CLINICAL INDICATION: Headaches TECHNIQUE: A CT of the brain was performed utilizing axial sections from the skull base through the vertex without contrast. Sagittal and coronal images were also reformatted. DICOM images are available. One or more of the following dose reduction techniques were used: Automated exposure control, adjustment of the mA and/or kV according to patient size, use of iterative reconstruction technique. The exam CTDIvol = 39.64 mGy and DLP = 634.23 mGy-cm. COMPARISON: CT head 11/30/2015 FINDINGS: No acute intracranial hemorrhage is identified. There is no mass effect or midline shift. No extra-axial fluid collection is seen. The ventricles and sulci are slightly prominent consistent with generalized atrophy slightly advanced for the patient's provided age of 53 years.. A tiny chronic lacunar infarct within the left lentiform nucleus is again suggested. Mobley-white differentiation is preserved. The osseous structures are unremarkable. The mastoid air cells and visualized paranasal sinuses are clear. RPTAT:HJJR IMPRESSION: 1. There is no evidence of acute intracranial abnormality or mass effect. 2. Tiny hypodensity within the left lentiform nucleus is unchanged from 11/30/2015 and probably reflects a chronic lacunar infarct or possibly a perivascular space. 3. No new abnormalities are identified compared to the prior exam. Physician Colby Date Time Electronically viewed and signed by Physician Colby on 11/03/2018 16:39 JR/ CC: DERIAN HERNANDEZ [id number] EKG: Rate/Rhythm: Normal Sinus Rhythm QRS, ST, T-waves: No changes consistent w/ acute ischemia Impression: No evidence of ischemia or arrhythmia MDM: 53-year-old male with history of migraines he had a headache since yesterday. Describes the pain as 9 out of 10. States that is not the worst headache of his life but he has been taking Tylenol has not been helping. He does state that the quality of this headache is somewhat different than his usual migraines and he would like imaging done. Brain CT 2 years ago for sim ilar complaints and CT came back with mild abnormalities. States the headache does get worse with light and noise. Denies fevers, nausea, vomiting, diarrhea, focal neurological deficits, numbness, tingling, dizziness. In addition patient states that he has been having lower abdominal pain intermittently for the last several months. He states that the pain radiates down his legs but denies any fever, diarrhea, vomiting, hematochezia, dysuria, hematuria. He does state that he was diagnosed with diverticulitis in the past he has been constipated for the last 4 days. Patient was given metoclopramide, Toradol, diphenhydramine in the ER and after administration states that his headache is gone. Due to patient's complaint of headache with this similar characteristics to his normal migraine as well as patient requesting head CT, decision was made to perform head CT. Results were within normal limits. Therefore low suspicion for any kind of intracranial mass or bleed. Patient most likely suffering from migraine headache. Patient given Rx for ibuprofen as well as since he states that sumatriptan has been in the past before. In addition, I advised patient to take the Colace for several days and see if that resolves his constipation as well as his left-sided abdominal pain if abdominal pain is not resolved since patient advised to return to ER for further workup. I have low suspicion for abdominal abscess, perforated diverticula, bowel obstruction, AAA, or other emergent condition, appendicitis, cholecystitis, or other emergent condition. Patient most likely suffering from constipation. Patient discharged with strict ER precautions. Patient advised to follow up with PMD. All questions answered at discharge. Departure Diagnosis: Primary Impression: Headache Headache type: unspecified Headache chronicity pattern: acute headache Intractability: not intractable Qualified Codes: R51 - Headache Additional Impression: Constipation Constipation type: unspecified constipation type Qualified Codes: K59.00 - Constipation, unspecified Condition: Bk DERIAN HERNANDEZ Nov 03, 2018 14:56
[2018-11-03] MEDS ORDERED: DOCU-144 PO (16:06)
[2018-11-03] MEDS ORDERED: IBUP-1542 PO (16:06)
[2018-11-03] MEDS ORDERED: SUMA25TA3 PO (17:07)
[2018-11-03 17:13] VITALS: BP 123/96; PULSE 62; RESP 18
== END 2018-11-03 17:15 | disposition home or self-care (01) ==
LOC: FTE 11:47
DX: R51 Headache (principal); K59.00 Constipation, unspecified; R10.9 Unspecified abdominal pain
CPT/HCPCS: 70450; 80053; 81003; 83690; 85025; 93005; 96374; 96375; J1200; J1885; J2765; Z7502

== ENCOUNTER 2019-02-18 19:06 | Emergency (ER) | payer OTHER ==
[~2019-02-18] VITALS: Ht 175.3 cm; Wt 68.5 kg
[~2019-02-18 19:06] MED LIST changes: +DOCU-144 PO
[2019-02-18 19:11] VITALS: BP 151/93; PULSE 71; RESP 18; Ht 175.3 cm; Wt 68.5 kg
--- NOTE | 2019-02-18 19:34 | ERD ---
ER Documentation Chief Complaint Chief Complaint THROAT PAIN X'S 1 YEAR HPI Patient is a 53 years old male presenting to the clinic for throat pain x 1 week. Patient admits to mild hoarseness that has improved. Patient denies cough, SOB, coryza, fever, chills, night sweats, neck swelling. Patient denies taking any OTC medication. ROS All systems reviewed and are negative except as per history of present illness. Medications Home Meds Active Scripts Amoxicillin/Potassium Clav (Amox-Clav 500-125 mg Tablet) 500-125 mg Tab, 1 TAB PO BID for 5 Days, TAB Prov:SANTIAGO ENGLAND PA-C 02/18/19 Sumatriptan Succinate* (Sumatriptan Succinate*) 25 Mg Tablet, 25 MG PO ONCE PRN for MIGRAINE HEADACHE, #10 TAB May repeat after 2 hours if needed; MAX 200 mg/24 hours Prov:DERIAN HERNANDEZ 11/03/18 Ibuprofen* (Motrin*) 600 Mg Tab, 600 MG PO Q6 for headache, #30 TAB Prov:DERIAN HERNANDEZ 11/03/18 Docusate Sodium* (Colace*) 100 Mg Capsule, 100 MG PO TID for constipation for 7 Days, #21 CAP Prov:DERIAN HERNANDEZ 11/03/18 Ibuprofen* (Motrin*) 600 Mg Tab, 600 MG PO Q6, #30 TAB Prov:RADHA LEZAMA PA-C 06/20/18 Neomycin/Polymyxin/Hydrocort* (Cortisporin* Otic) 10 Ml Susp, 4 DROP LEFT EAR QID for 7 Days, EA Prov:BRIAN SANCHEZ NP 01/09/17 Acetamin/Butalbital/Caffeine* (Fioricet*) [id number] Tab, 1 TAB PO Q6H PRN for PAIN, #15 TAB Prov:STEPHANY ZAIDI MD 01/02/17 Olopatadine* (Patanol* Ophth) 0.1% - 5 Ml Drops, 1 DROP BOTH EYES BID, #1 EA Prov:STEPHANY ZAIDI MD 01/02/17 Diazepam* (Valium*) 5 Mg Tablet, 5 MG PO Q8, #10 TAB Prov:HETALHOLLY 12/06/16 Ibuprofen* (Motrin*) 800 Mg Tab, 800 MG PO Q6, #30 TAB Prov:HOLLY FONG 12/06/16 Ibuprofen* (Motrin*) 800 Mg Tab, 800 MG PO Q8 PRN for PAIN AND OR ELEVATED TEMP, #30 TAB Prov:LEXIMICHAELLE WallaceChaya SPICER 08/25/16 Naproxen* (Naprosyn*) 500 Mg Tablet, 500 MG PO BID PRN for PAIN AND/OR INFLAMMATION, #30 TAB Prov:TARUN PIMENTEL PA-C 05/31/16 Ibuprofen* (Motrin*) 600 Mg Tab, 600 MG PO Q6, #30 TAB Prov:JETT ANGUIANO PA-C 04/08/16 Ibuprofen* (Motrin*) 800 Mg Tab, 800 MG PO Q6H PRN for PAIN AND OR ELEVATED TEMP, #30 TAB Prov:MARLENY CHIN MD 11/30/15 Reported Medications [none] No Conflict Check 04/09/12 Allergies Allergies: Coded Allergies: hydromorphone (Verified Allergy, Severe, POSSIBLE ANAPHYLACTIC SHOCK, 01/02/17) PT HAD SEVERE BRADYCARDIA EPISODE PMhx/Soc History of Surgery: Yes (Appy) Anesthesia Reaction: No Hx Neurological Disorder: No Hx Respiratory Disorders: No Hx Cardiac Disorders: No Hx Psychiatric Problems: No Hx Miscellaneous Medical Probl: No Hx Alcohol Use: Yes (occ) Hx Substance Use: No Hx Tobacco Use: No Smoking Status: Never smoker Physical Exam Vitals Vital Signs Date Temp Pulse Resp B/P (MAP) Pulse Ox O2 O2 Flow FiO2 Time Delivery Rate 02/18/19 97.6 71 18 151/93 98 19:11 (112) Physical Exam Const: No acute distress Head: Atraumatic Eyes: Normal Conjunctiva ENT: Normal External Ears, Nose. Mild tonsillar erythema with a single white lesion on right tonsil. No oropharyngeal edema. Neck: Full range of motion. No meningismus. No cervical lymphadenopathy. Resp: Clear to auscultation bilaterally Cardio: Regular rate and rhythm, no murmurs Neur: Awake and alert Psych: Normal Mood and Affect Procedures/MDM Patient was seen and evaluated for throat pain, most likely tonsillitis vs pharyngitis. Provider is not concerned for peritonsillar abscess due to no swelling or uvula deviation. Patient denied pain management in clinic. Patient is stable and ready for discharge. Patient will be discharged with Augmentin 500mg PO BID x 5 Days. Departure Diagnosis: Primary Impression: Tonsillitis Condition: Stable Patient Instructions: Pharyngitis, Viral Referrals: [facility] Additional Instructions: Patient advised to return to the ED immediately for new or worsening symptoms. Patient advised to follow up with primary care provider in the next 24-48 hours. Patient verbalized understanding and agrees with treatment plan and course of action. If patient has no primary care they may follow up with [facility] + [facility] [address] [place] [id number] or [facility] [address] [place] [address] or [facility] [address] [place] [address] SANTIAGO ENGLAND PA-C Feb 18, 2019 19:34
[2019-02-18] MEDS ORDERED: AMOX1TAB9 PO (19:35)
== END 2019-02-18 20:18 | disposition home or self-care (01) ==
LOC: FTE 19:06
DX: J03.90 Acute tonsillitis, unspecified (principal)
CPT/HCPCS: 99283

== ENCOUNTER 2019-02-28 11:29 | Emergency (ER) | payer OTHER ==
[~2019-02-28] VITALS: Ht 175.3 cm; Wt 67.9 kg
[~2019-02-28 11:29] MED LIST changes: +AMOX1TAB9 PO
[2019-02-28 11:33] VITALS: Ht 175.3 cm; Wt 67.9 kg
[2019-02-28] MEDS ORDERED: AMOX1TAB10 PO (14:16)
[2019-02-28] MEDS ORDERED: ACET-141 PO (14:16)
--- NOTE | 2019-02-28 14:17 | ERD ---
ER Documentation Chief Complaint Chief Complaint SORE THROAT X 1 WEEK ROS All systems reviewed and are negative except as per history of present illness. Medications Home Meds Active Scripts Acetaminophen* (Acetaminophen*) 500 MG Extra Strength Tablet, 500 MG PO Q4H PRN for PAIN AND OR ELEVATED TEMP, #30 TAB Prov:STEPHANY JULIAN 02/28/19 Amoxicillin/Potassium Clav (Amox-Clav 875-125 mg Tablet) 875-125 mg Tab, 1 TAB PO BID for sore throat for 5 Days, #10 TAB Prov:STEPHANY JULIAN 02/28/19 Amoxicillin/Potassium Clav (Amox-Clav 500-125 mg Tablet) 500-125 mg Tab, 1 TAB PO BID for 5 Days, TAB Prov:SANTIAGO ENGLAND PA-C 02/18/19 Sumatriptan Succinate* (Sumatriptan Succinate*) 25 Mg Tablet, 25 MG PO ONCE PRN for MIGRAINE HEADACHE, #10 TAB May repeat after 2 hours if needed; MAX 200 mg/24 hours Prov:DERIAN HERNANDEZ 11/03/18 Ibuprofen* (Motrin*) 600 Mg Tab, 600 MG PO Q6 for headache, #30 TAB Prov:DERIAN HERNANDEZ 11/03/18 Docusate Sodium* (Colace*) 100 Mg Capsule, 100 MG PO TID for constipation for 7 Days, #21 CAP Prov:DERIAN HERNANDEZ 11/03/18 Ibuprofen* (Motrin*) 600 Mg Tab, 600 MG PO Q6, #30 TAB Prov:RADHA LEZAMA PA-C 06/20/18 Neomycin/Polymyxin/Hydrocort* (Cortisporin* Otic) 10 Ml Susp, 4 DROP LEFT EAR QID for 7 Days, EA Prov:BRIAN SANCHEZ NP 01/09/17 Acetamin/Butalbital/Caffeine* (Fioricet*) [id number] Tab, 1 TAB PO Q6H PRN for PAIN, #15 TAB Prov:STEPHANY ZAIDI MD 01/02/17 Olopatadine* (Patanol* Ophth) 0.1% - 5 Ml Drops, 1 DROP BOTH EYES BID, #1 EA Prov:STEPHANY ZAIDI MD 01/02/17 Diazepam* (Valium*) 5 Mg Tablet, 5 MG PO Q8, #10 TAB Prov:HETAL,HOLLY 12/06/16 Ibuprofen* (Motrin*) 800 Mg Tab, 800 MG PO Q6, #30 TAB Prov:HETAL,HOLLY 12/06/16 Ibuprofen* (Motrin*) 800 Mg Tab, 800 MG PO Q8 PRN for PAIN AND OR ELEVATED TEMP, #30 TAB Prov:LEXIMICHAELLEJOSH Gardiner NP 08/25/16 Naproxen* (Naprosyn*) 500 Mg Tablet, 500 MG PO BID PRN for PAIN AND/OR INFLAMMATION, #30 TAB Prov:TARUN PIMENTEL PA-C 05/31/16 Ibuprofen* (Motrin*) 600 Mg Tab, 600 MG PO Q6, #30 TAB Prov:JETT ANGUIANO PA-C 04/08/16 Ibuprofen* (Motrin*) 800 Mg Tab, 800 MG PO Q6H PRN for PAIN AND OR ELEVATED TEMP, #30 TAB Prov:MARLENY CHIN MD 11/30/15 Reported Medications [none] No Conflict Check 04/09/12 Allergies Allergies: Coded Allergies: hydromorphone (Verified Allergy, Severe, POSSIBLE ANAPHYLACTIC SHOCK, 01/02/17) PT HAD SEVERE BRADYCARDIA EPISODE PMhx/Soc History of Surgery: Yes (Appy) Anesthesia Reaction: No Hx Neurological Disorder: No Hx Respiratory Disorders: No Hx Cardiac Disorders: No Hx Psychiatric Problems: No Hx Miscellaneous Medical Probl: No Hx Alcohol Use: Yes (occ) Hx Substance Use: No Hx Tobacco Use: No Physical Exam Vitals Vital Signs Date Temp Pulse Resp B/P (MAP) Pulse Ox O2 O2 Flow FiO2 Time Delivery Rate 02/28/19 98.2 63 18 137/92 97 11:33 (107) Physical Exam Const: No acute distress Head: Atraumatic Eyes: Normal Conjunctiva ENT: Normal External Ears, Nose and Mouth. Neck: Full range of motion. No meningismus. Resp: Clear to auscultation bilaterally Cardio: Regular rate and rhythm, no murmurs Abd: Soft, non tender, non distended. Normal bowel sounds Skin: No petechiae or rashes Back: No midline or flank tenderness Ext: No cyanosis, or edema Neur: Awake and alert Psych: Normal Mood and Affect Departure Diagnosis: Primary Impression: Sore throat Condition: Fair Patient Instructions: Self-Care for Sore Throats Referrals: [facility] RICHARD Gilbert (PCP) Additional Instructions: Call your primary care doctor TOMORROW for an appointment during the next 1-2 days.See the doctor sooner or return here if your condition worsens before your appointment time. STEPHANY JULIAN DO Feb 28, 2019 14:17
[2019-02-28 14:24] VITALS: BP 121/71; PULSE 70; RESP 18
== END 2019-02-28 14:26 | disposition home or self-care (01) ==
LOC: FTE 11:29
DX: J02.9 Acute pharyngitis, unspecified (principal)
CPT/HCPCS: 87880; Z7502; 99283